=== PATIENT | female | born 1965 | race African-American/Black ===

== ENCOUNTER → 2016-11-13 | Outpatient (CLI) | payer OTHER ==
--- NOTE | 2016-11-13 10:57 | KCIC ---
PROCEDURE Small bowel follow-through study 11/13/2016 HISTORY Chronic abdominal pain and nausea for 4 months. TECHNIQUE A small bowel follow-through study was performed under radiographic and intermittent fluoroscopic control. 2 digital spot radiographs of the terminal ilium were obtained. The total fluoroscopic time for this study was 56 seconds. FINDINGS No previous imaging studies are available for comparison. 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 This demonstrates surgical clips overlying the right upper quadrant of the abdomen consistent with a cholecystectomy. A moderate amount of stool is seen throughout the colon. The abdominal bowel gas pattern is nonobstructive. No radiopaque calculus is seen. Mild degenerative changes are seen involving the lumbar spine. The mucosal pattern of the duodenal, jejunum, ilium and terminal ilium is within normal limits. There is rapid transit of the oral contrast material throughout the small bowel reaching the right colon on the 0 minute radiograph. The cecum is in its normal location within the right lower quadrant of the abdomen. No area of wall thickening or stricture is noted. No extrinsic mass effect upon the small bowel is seen. IMPRESSION There is rapid transit of the oral contrast material through the small intestine into the ascending colon as outlined above. Otherwise negative study. Electronically signed by: Ino Alvarez MD (Nov 13, 2016 10:56:23)
== END | disposition home or self-care (01) ==
LOC: KCIC 07:53
PROVIDERS: ATTEND Internal Medicine Gastroenterology
DX: R10.9 Unspecified abdominal pain (principal); M47.896 Other spondylosis, lumbar region
CPT/HCPCS: 74250